=== PATIENT | male | born 1980 | race Caucasian/White ===

== ENCOUNTER 2021-01-06 07:37 | Day surgery (SDC) | payer MEDICAID, SELFPAY ==
[~2021-01-06] VITALS: Ht 177.8 cm; Wt 61.2 kg
[2021-01-06] MEDS ORDERED: fentaNYL CITRATE/PF 100 MCG/2 ML AMP ONE (07:51)
[2021-01-06] MEDS ORDERED: MIDAZOLAM HCL 5 MG/5 ML VIAL ONE ×2 (07:51→09:31)
[2021-01-06] MEDS ORDERED: SIMETHICONE 40 MG/0.6 ML ML ONE (07:51)
[2021-01-06] MEDS ORDERED: DIPHENHYDRAMINE INJ 50 MG/ML VIAL ONE (09:27)
[2021-01-06 16:34] VITALS: BP_SYST 99
== END 2021-01-06 10:49 | disposition home or self-care (01) ==
LOC: SDS 07:37 → SMU 07:38 → SDS 10:49
PROVIDERS: ATTEND Internal Medicine
DX: Z12.11 Encounter for screening for malignant neoplasm of colon (principal); K50.019 Crohn's disease of small intestine with unspecified complications; K29.50 Unspecified chronic gastritis without bleeding; Z80.0 Family history of malignant neoplasm of digestive organs; Z90.49 Acquired absence of other specified parts of digestive tract; Z87.891 Personal history of nicotine dependence; Z79.899 Other long term (current) drug therapy; Z98.890 Other specified postprocedural states; Z20.822 Contact with and (suspected) exposure to COVID-19
CPT/HCPCS: 36415 ×2; 43239; 45380; 87081; 87426; 88305; 88312; 88313; 88341; 88342; 88361; 99152; 99153; G0378; J1200; J2250; J3010